=== PATIENT | female | born 1955 | race Hispanic/Latino ===

== ENCOUNTER 2019-06-09 16:55 | Emergency (ER) | payer SELFPAY ==
[2019-06-09] MEDS ORDERED: Ibuprofen 800 MG TAB ONE (18:01)
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
== END 2019-06-09 19:00 | disposition home or self-care (01) ==
LOC: ERS 16:55
DX: J34.89 Other specified disorders of nose and nasal sinuses (principal); E78.5 Hyperlipidemia, unspecified; E78.00 Pure hypercholesterolemia, unspecified; V43.52XA Car driver injured in collision with other type car in traffic accident, initial encounter
CPT/HCPCS: 70486